=== PATIENT | female | born 2000 | race Caucasian/White ===

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

== ENCOUNTER 2020-01-05 11:02 | Emergency (ER) | payer MEDICAID, SELFPAY ==
[~2020-01-05] VITALS: Ht 160 cm; Wt 84.4 kg
[2020-01-05 11:03] VITALS: BP 123/67
[2020-01-05 11:48] VITALS: BP 123/67
--- NOTE | 2020-01-05 11:48 | NUR ---
co sore throat x2d and vomiting since yesterday. PT LAST THREW UP THIS AM AT 4AM. NO PAIN IN ABD, ONLY CO NAUSEA. PT AOX4 , AFIBRILE , AMBULATORY WITH STEADY GAIT , PINK PALPEBRAL CONJUNCTIVA , ANICTERIC SCLERA, SCE , FLAT SOFT ABDOMEN. PMH- NONE
--- NOTE | 2020-01-05 11:49 | NUR ---
Patient discharged with v/s stable. Written and verbal after care instructions given and explained regarding bacterial pharyngitis. Patient alert, oriented and verbalized understanding of instructions. Ambulatory with steady gait. All questions addressed prior to discharge. ID band removed. Patient advise to follow up with PMD. Rx of norco , lidocaine , naprosyn and amoxicillin given. Patient educated on indication of medication including possible reaction and side effects. Opportunity to ask questions provided and answered.
== END 2020-01-05 11:49 | disposition home or self-care (01) ==
LOC: MED 11:02
DX: J02.9 Acute pharyngitis, unspecified (principal)
CPT/HCPCS: 99283

== ENCOUNTER 2020-01-28 17:09 | Emergency (ER) | payer MEDICAID ==
[~2020-01-28] VITALS: Ht 162.6 cm; Wt 85.3 kg
[2020-01-28 17:14] VITALS: BP 141/80
--- NOTE | 2020-01-28 17:20 | NUR ---
Pt walked to bed 12 for evaluation.
--- NOTE | 2020-01-28 17:25 | NUR ---
19 y/o female A&OX4 c/o lip and hand swelling X1hour ago. Pt states she feels her throat closing, denies being SOB. Took 4 benadryl with no relief states numbness to the lips and hands. Denies PMH, RX NKA
[2020-01-28] MEDS ORDERED: DEXAMETHASONE 10 MG/ML VIAL IM ONE (17:30)
[2020-01-28 18:30] VITALS: BP 117/77
--- NOTE | 2020-01-28 18:31 | NUR ---
Patient discharged with v/s stable. Written and verbal after care instructions given and explained. Patient alert, oriented and verbalized understanding of instructions. Ambulatory with steady gait. All questions addressed prior to discharge. ID band removed. Patient advised to follow up with PMD. Rx of Benadryl 25g and prednisone 20mg given. Patient educated on indication of medication including possible reaction and side effects. Opportunity to ask questions provided and answered.
== END 2020-01-28 18:31 | disposition home or self-care (01) ==
LOC: MED 17:09
DX: R22.0 Localized swelling, mass and lump, head (principal)
CPT/HCPCS: 96372; 99283; J1100

== ENCOUNTER 2020-10-04 12:32 | Emergency (ER) | payer MEDICAID ==
[~2020-10-04] VITALS: Ht 160 cm; Wt 87.1 kg
[2020-10-04 12:33] VITALS: BP 110/46
--- NOTE | 2020-10-04 12:44 | NUR ---
PATIENT AMBULATED TO BED 6.
[2020-10-04] MEDS ORDERED: ALUMINUM HYD/MAG/SIMETHICONE 30 ML UDC PO ONE (13:10)
[2020-10-04] MEDS ORDERED: FAMOTIDINE 20 MG TAB PO ONE (13:10)
--- NOTE | 2020-10-04 13:16 | NUR ---
19 YEAR OLD FEMALE COMPLAINS OF NAUSEA, VOMITTING, AND DIZZINESS THAT GOT WORSE X 4 DAYS. PT STATES PROBLEM HAS BEEN FOR THE PAST MONTH AND VOMITTING WOULD HAPPEN AFTER WAKING UP. BOWEL SOUNDS NORMOACTIVE, NONTENDER. PT AOX4, BREATHING EVEN AND UNLABORED, SKIN WARM AND DRY. BED IN LOWEST POSITION, LOCKED, BED RAIL UPX1. PMH - ANXIETY ALLERGIES - NKA
[2020-10-04] MEDS ORDERED: ONDA-24 PO (13:49)
[2020-10-04] MEDS ORDERED: FAMO-92 PO (13:49)
[2020-10-04 13:54] VITALS: BP 110/46
--- NOTE | 2020-10-04 13:55 | NUR ---
Patient discharged with v/s stable. Written and verbal after care instructions about gastritis given and explained. Patient alert, oriented and verbalized understanding of instructions. Ambulatory with steady gait. All questions addressed prior to discharge. ID band removed. Patient advised to follow up with PMD. Rx of zofran, pepcid given. Patient educated on indication of medication including possible reaction and side effects. Opportunity to ask questions provided and answered.
== END 2020-10-04 13:55 | disposition home or self-care (01) ==
LOC: MED 12:32
DX: K29.70 Gastritis, unspecified, without bleeding (principal); R11.2 Nausea with vomiting, unspecified; R14.0 Abdominal distension (gaseous); F12.90 Cannabis use, unspecified, uncomplicated
CPT/HCPCS: 81002; 81025; 99283

== ENCOUNTER 2020-10-21 14:26 | Emergency (ER) | payer MEDICAID ==
[~2020-10-21] VITALS: Ht 160 cm; Wt 86.2 kg
[~2020-10-21 14:26] MED LIST: FAMO-92 PO; ONDA-24 PO
[2020-10-21 15:06] VITALS: BP 125/55
--- NOTE | 2020-10-21 15:12 | NUR ---
Pt remains in tent at this time.
--- NOTE | 2020-10-21 16:43 | NUR ---
MINDY Ya is evaluating patient in tent
--- NOTE | 2020-10-21 16:46 | NUR ---
Yonathan flanagan swab collected, walked to lab and handed to CPT. Mony
[2020-10-21] MEDS ORDERED: CETI1TAB5 PO (16:49)
[2020-10-21] MEDS ORDERED: PROM118S5 PO (16:49)
[2020-10-21] MEDS ORDERED: IBUP-2213 PO (16:49)
[2020-10-21 17:30] VITALS: BP 131/62
--- NOTE | 2020-10-21 17:30 | NUR ---
No nursing interventions performed.
--- NOTE | 2020-10-21 17:33 | NUR ---
Patient discharged with v/s stable. Written and verbal after care instructions given and explained. Patient alert, oriented and verbalized understanding of instructions. Ambulatory with steady gait. All questions addressed prior to discharge. ID band removed. Patient advised to follow up with PMD. Rx of Zyrtec-D tablet, Ibuprofen, Promethazine-Dm Syrup given. Patient educated on indication of medication including possible reaction and side effects. Opportunity to ask questions provided and answered.
== END 2020-10-21 17:33 | disposition home or self-care (01) ==
LOC: MED 14:26
DX: R50.9 Fever, unspecified (principal); Z20.822 Contact with and (suspected) exposure to COVID-19; R05 Cough; M79.10 Myalgia, unspecified site; Z79.899 Other long term (current) drug therapy
CPT/HCPCS: 99283

== ENCOUNTER 2021-03-08 16:16 | Emergency (ER) | payer MEDICAID ==
[~2021-03-08] VITALS: Ht 160 cm; Wt 77.1 kg
[~2021-03-08 16:16] MED LIST changes: +CETI1TAB5 PO; +IBUP-2213 PO; +ONDA-188 PO; -ONDA-24 PO; +PROM118S5 PO
[2021-03-08 17:43] VITALS: BP 117/71
--- NOTE | 2021-03-08 17:47 | NUR ---
TENT1
[2021-03-08] MEDS ORDERED: PROM118S5 PO (18:09)
[2021-03-08] MEDS ORDERED: BENZ1LOZ98 PO (18:09)
--- NOTE | 2021-03-08 19:14 | NUR ---
PATIENT ELOPED FROM FACILITY. DISCHARGE INSTRUCTIONS NOT GIVEN TO PATIENT. MINDY FLOREZ NOTIFIED. CALLED PT SHE STATED SHE IS OK NOW.
--- NOTE | 2021-03-08 19:14 | NUR ---
Note lynphilip in EDM - 03/08/21 at 1917 by [facility] PATIENT LEFT WITHOUT BEING SEEN BY MINDY FLOREZ. NO FURTHER CARE PROVIDED FOR PATIENT. CALLED PT . PT STATED SHE IS OK . REFUSED COVID SWAB.
--- NOTE | 2021-03-08 19:18 | NUR ---
REFUSED COVID SWAB.
== END 2021-03-08 19:14 | disposition left against medical advice (07) ==
LOC: MED 16:16
DX: B34.9 Viral infection, unspecified (principal)
CPT/HCPCS: 99281; 99283